=== PATIENT | female | born 1970 | race Caucasian/White ===

== ENCOUNTER 2017-12-12 12:52 | Emergency (ER) | payer MEDICARE, MEDICAID ==
[2017-12-12 13:13] VITALS: BP 131/77
[2017-12-12] MEDS ORDERED: Acetaminop/Codeine 30 MG TAB* 1 TAB (300 MG/30 MG) PO ONE (13:23)
--- NOTE | 2017-12-12 13:27 | UC ---
Hand/Wrist HPI - HPI Summary HPI Summary: Patient woke up with severe pain in the left kndex finger, it is slightly red and swollen. unknown IZZY. - History Of Current Complaint Chief Complaint: UCUpperExtremity Stated Complaint: LEFT FINGER COMPLAINT Time Seen by Provider: 12/12/17 13:19 Hx Obtained From: Patient Hx Last Menstrual Period: 11/13/17 ?: No Onset/Duration: Sudden Onset, Lasting Hours Severity Initially: Severe Severity Currently: Severe Aggravating Factor(s): Movement Alleviating Factor(s): Nothing Associated Signs And Symptoms: Positive: Swelling, Redness - Allergies/Home Medications Allergies/Adverse Reactions: Allergies Allergy/AdvReac Type Severity Reaction Status Date / Time Ibuprofen [From Motrin] Allergy Unknown Unknown Verified 12/12/17 13:13 Reaction Details Olanzapine Allergy Unknown Unknown Verified 12/12/17 13:13 Reaction Details Home Medications: Home Medications Citalopram TAB* [CeleXA TAB*] 20 mg PO DAILY 12/12/17 [History Confirmed ] Folic Acid TAB* [Folvite TAB*] 1 mg PO DAILY 12/12/17 [History Confirmed ] PMH/Surg Hx/FS Hx/Imm Hx Previously Healthy: Yes Other History Of: Negative For: Anticoagulant Therapy - Surgical History Surgical History: Yes Surgery Procedure, Year, and Place: CARPAL TUNNEL, 1993 RIGHT. AMMY FEET, 1998 X2. [place], 2003. CYST FROM LEFT EYE A CHILD. GASTRIC BYPASS, 2011 Gallbladder removed - Family History Known Family History: Positive: None Negative: Cardiac Disease, Hypertension - Social History Alcohol Use: None Substance Use Type: None Smoking Status (MU): Never Smoked Tobacco Type: Cigarettes Have You Smoked in the Last Year: No - Immunization History Most Recent Influenza Vaccination: fall 2012 Most Recent Tetanus Shot: within ten years Most Recent Pneumonia Vaccination: none Review of Systems Constitutional: Negative Skin: Other - redness of knuckle on hand Eyes: Negative ENT: Negative Respiratory: Negative Cardiovascular: Negative Gastrointestinal: Negative Genitourinary: Negative Motor: Negative Neurovascular: Negative Musculoskeletal: Arthralgia, Edema, Myalgia Neurological: Negative Psychological: Negative Is Patient Immunocompromised?: No All Other Systems Reviewed And Are Negative: Yes Physical Exam Triage Information Reviewed: Yes Appearance: No Pain Distress, Well-Nourished, Pain Distress Vital Signs: Initial Vital Signs Temp 98.7 F 01/20/18 13:09 Pulse 71 12/12/17 13:09 Resp 14 12/12/17 13:09 BP 131/77 12/12/17 13:09 Pulse Ox 100 12/12/17 13:09 Vital Signs Reviewed: Yes Eye Exam: Normal ENT Exam: Normal Dental Exam: Normal Neck exam: Normal Respiratory Exam: Normal Cardiovascular Exam: Normal Abdominal Exam: Normal Abdomen Description: Positive: Nontender, No Organomegaly, Soft Bowel Sounds: Positive: Present Musculoskeletal Exam: Normal Musculoskeletal: Positive: Strength Limited @ - at baselind due to arthritis, ROM Limited @ - joints are very lax,, Edema @ - left index finger MCP joint Neurological Exam: Normal Neurological: Positive: Alert, Muscle Tone Normal Psychological Exam: Normal Hand/Wrist Course/Dx - Course Course Of Treatment: hx obtained, exam performed ,meds reviewed, xray obtained, swan neck deformity noted, this is not a new finding according to patient, pain med given. finger spint applied. 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 left index finger pain and swelling Discharge - Discharge Plan Condition: Stable Disposition: HOME Patient Education Materials: Arthralgia (ED) Referrals: Jessica Funez MD [Primary Care Provider] - Additional Instructions: 1. use the spint for support over the next few days. 2. warm water soaks, can use epsom salts as well for the finger and hand. 3. Your xray shows no fracture, does show that you have a swans neck deformity of the joints of the finger, 4. if pain persists with rest and splinting, your finger becomes hot to touch, you need to follow up.
--- NOTE | 2017-12-12 14:01 | RAD ---
HISTORY: Pain and swelling of left index finger COMPARISONS: None VIEWS: 4, Frontal, lateral, and oblique views of the second digit of the left hand FINDINGS: BONE DENSITY: Normal. BONES: There is no displaced fracture. JOINTS: The left PIP joint is held in extension. The left DIP joint is held in flexion. ALIGNMENT: There is no dislocation. SOFT TISSUES: Unremarkable. OTHER FINDINGS: None. IMPRESSION: SWAN-NECK DEFORMITY OF THE SECOND DIGIT OF THE LEFT HAND
== END 2017-12-12 14:22 | disposition home or self-care (01) ==
LOC: UCCORT 12:52
DX: M20.032 Swan-neck deformity of left finger(s) (principal); M79.645 Pain in left finger(s); M79.89 Other specified soft tissue disorders; Z88.8 Allergy status to other drugs, medicaments and biological substances
CPT/HCPCS: 73140; 99212; A9270-GY; G0463

== ENCOUNTER 2018-04-07 13:27 | Emergency (ER) | payer MEDICARE, MEDICAID ==
[2018-04-07 13:56] VITALS: BP 116/67
--- NOTE | 2018-04-07 14:36 | UC ---
Lower Extremity/Ankle HPI - HPI Summary HPI Summary: Pt c/o right inner foot pain, bruising, after hitting right inner foot against metal frame on chair. - History of Current Complaint Chief Complaint: UCLowerExtremity Stated Complaint: RIGHT ANKLE INJURY Time Seen by Provider: 04/07/18 14:10 Hx Obtained From: Patient Hx Last Menstrual Period: 11/13/17 ?: No Onset/Duration: Sudden Onset, Still Present Severity Initially: Moderate Severity Currently: Moderate Pain Intensity: 8 Aggravating Factor(s): Standing, Ambulation Alleviating Factor(s): Rest, Elevation Able to Bear Weight: Yes - minimal - Risk Factors Gout Risk Factors: Age Over 40 DVT Risk Factors: Negative Septic Arthritis Risk Factor: Negative - Allergies/Home Medications Allergies/Adverse Reactions: Allergies Allergy/AdvReac Type Severity Reaction Status Date / Time ibuprofen Allergy "Tongue Verified 04/07/18 13:46 Swells" olanzapine [From Zyprexa] Allergy "Tongue Verified 04/07/18 13:46 Swells" Home Medications: Home Medications Cyanocobalamin TAB* [Vitamin B12 TAB*] 1,000 mcg PO DAILY 04/07/18 [History Confirmed 04/07/18] Ferrous Fum/Vit C/B12-If/Folic [Ferocon] 1 cap PO MOWEFR 04/07/18 [History Confirmed 04/07/18] Folic Acid TAB* [Folvite TAB*] 1 mg PO DAILY 04/07/18 [History Confirmed ] Sertraline* [Zoloft*] 100 mg PO DAILY 04/07/18 [History Confirmed 04/07/18] Zolpidem TAB* [Ambien TAB*] 10 mg PO BEDTIME PRN 04/07/18 [History Confirmed ] lamoTRIgine TAB(*) [LaMICtal TAB(*)] 150 - 200 mg PO SEE INSTRUCTIONS 04/07/18 [ History Confirmed 04/07/18] PMH/Surg Hx/FS Hx/Imm Hx Previously Healthy: Yes Other History Of: Negative For: Anticoagulant Therapy - Surgical History Surgical History: Yes Surgery Procedure, Year, and Place: CARPAL TUNNEL, 1993 RIGHT. AMMY FEET, 1998 X2. [place], 2002. CYST FROM LEFT EYE A CHILD. GASTRIC BYPASS, 2011 Gallbladder removed - Family History Known Family History: Positive: None Negative: Cardiac Disease, Hypertension - Social History Occupation: Disabled Lives: [employer] Alcohol Use: None Substance Use Type: None Smoking Status (MU): Never Smoked Tobacco Type: Cigarettes Have You Smoked in the Last Year: No - Immunization History Most Recent Influenza Vaccination: fall 2012 Most Recent Tetanus Shot: within ten years Most Recent Pneumonia Vaccination: none Review of Systems Constitutional: Negative Skin: Bruising - right innner mid foot Eyes: Negative ENT: Negative Respiratory: Negative Cardiovascular: Negative Gastrointestinal: Negative Genitourinary: Negative Motor: Decreased ROM - preexisting Neurovascular: Negative Musculoskeletal: Arthralgia, Decreased ROM - right ankle,left ankle has ankle support on Neurological: Negative Psychological: Negative Is Patient Immunocompromised?: No All Other Systems Reviewed And Are Negative: Yes Physical Exam Triage Information Reviewed: Yes Appearance: Well-Appearing Vital Signs: Initial Vital Signs Temp 98.5 F 04/07/18 13:43 Pulse 76 04/07/18 13:43 Resp 16 04/07/18 13:43 BP 116/67 04/07/18 13:43 Pulse Ox 100 04/07/18 13:43 Vital Signs Reviewed: Yes Eye Exam: Normal Dental Exam: Normal Neck exam: Normal Respiratory: Positive: No respiratory distress Musculoskeletal Exam: Other Musculoskeletal: Positive: Strength Limited @ - preexisting left foot, ROM Limited @ - right and left foot preexisting Neurological Exam: Normal Psychological Exam: Normal Skin Exam: Other - golf ball size hematoma right mid inner foot/arch Diagnostics - Radiology No standard instances Radiology Interpretation Completed By: Radiologist - IMPRESSION: 1. STATUS POST RIGHT ANKLE, HINDFOOT, AND MIDFOOT FUSION. 2. OSTEOARTHRITIS. 3. NO ACUTE OSSEOUS INJURY. IF SYMPTOMS PERSIST, RECOMMEND REPEAT IMAGING Lower Extremity Course/Dx - Differential Dx/Diagnosis Differential Diagnosis/HQI/PQRI: Contusion, Fracture (Closed) Provider Diagnoses: right foot contusion Discharge - Sign-Out/Discharge Documenting (check all that apply): Discharge/Admit/Transfer - Discharge Plan Condition: Stable Disposition: HOME Patient Education Materials: Foot Contusion (ED), R.I.C.E. Treatment (ED) Referrals: Jessica Funez MD [Primary Care Provider] - If Needed - Billing Disposition and Condition Condition: STABLE Disposition: HOME
--- NOTE | 2018-04-07 14:45 | RAD ---
HISTORY: Right ankle fusion, foot trauma, contusion COMPARISONS: None VIEWS: 2, Frontal and lateral views of the right foot FINDINGS: BONE DENSITY: Normal. BONES: The patient is fusion across the tibiotalar and subtalar articulations. The patient is status post fusion of the lateral aspect of the midfoot. There is no appreciable hardware failure or osteolysis. There is no displaced fracture or dislocation. JOINTS: There is osteoarthritis of the first MTP joint. ALIGNMENT: There is no dislocation. SOFT TISSUES: Unremarkable. OTHER FINDINGS: None. IMPRESSION: 1. STATUS POST RIGHT ANKLE, HINDFOOT, AND MIDFOOT FUSION. 2. OSTEOARTHRITIS. 3. NO ACUTE OSSEOUS INJURY. IF SYMPTOMS PERSIST, RECOMMEND REPEAT IMAGING
== END 2018-04-07 15:20 | disposition home or self-care (01) ==
LOC: UCCORT 13:27
DX: S90.31XA Contusion of right foot, initial encounter (principal); W22.03XA Walked into furniture, initial encounter; Y93.9 Activity, unspecified; Y92.9 Unspecified place or not applicable; Z88.6 Allergy status to analgesic agent; Z88.8 Allergy status to other drugs, medicaments and biological substances
CPT/HCPCS: 99212; G0463

== ENCOUNTER 2018-11-07 11:39 | Emergency (ER) | payer MEDICARE, MEDICAID ==
[2018-11-07 12:24] VITALS: BP 150/76
--- NOTE | 2018-11-07 13:28 | UC ---
Skin Complaint HPI - HPI Summary HPI Summary: pt is accompanied by penitentiary caregiver. Pt has been "picking at" left hand dorsal aspect due to anxiety and depression (per patient). Pt and caregiver are concerned for infection at site. - History of Current Complaint Chief Complaint: UCSkin Time Seen by Provider: 11/07/18 12:32 Stated Complaint: SKIN CONCERN Hx Obtained From: Patient Hx Last Menstrual Period: 11/05/18 ?: No Onset/Duration: Gradual Onset, Lasting Days, Still Present Skin Exposure Onset/Duration: Days Ago Timing: Constant Onset Severity: Mild Current Severity: Moderate Pain Intensity: 7 Pain Scale Used: 0-10 Numeric Location: Hand (Left) Character: Pain, Redness, Painful Aggravating Factor(s): Touch Alleviating Factor(s): Nothing Associated Signs & Symptoms: Positive: Tenderness Related History: Trauma - self inflicted scratching - Allergy/Home Medications Allergies/Adverse Reactions: Allergies Allergy/AdvReac Type Severity Reaction Status Date / Time ibuprofen Allergy "Tongue Verified 11/07/18 12:24 Swells" olanzapine [From Zyprexa] Allergy "Tongue Verified 11/07/18 12:24 Swells" PMH/Surg Hx/FS Hx/Imm Hx Previously Healthy: Yes Other History Of: Negative For: Anticoagulant Therapy - Surgical History Surgical History: Yes Surgery Procedure, Year, and Place: CARPAL TUNNEL, 1993 RIGHT. AMMY FEET, 1998 X2. [place], 2003. CYST FROM LEFT EYE A CHILD. GASTRIC BYPASS, 2011 Gallbladder removed - Family History Known Family History: Positive: None Negative: Cardiac Disease, Hypertension - Social History Occupation: Disabled Lives: [employer] Alcohol Use: None Substance Use Type: None Smoking Status (MU): Never Smoked Tobacco Type: Cigarettes Have You Smoked in the Last Year: No - Immunization History Most Recent Influenza Vaccination: fall 2012 Most Recent Tetanus Shot: within ten years Most Recent Pneumonia Vaccination: none Review of Systems All Other Systems Reviewed And Are Negative: Yes Constitutional: Positive: Negative Skin: Positive: Other - scabbed over wounds, mild erythema at wound site Eyes: Positive: Negative ENT: Positive: Negative Respiratory: Positive: Negative Cardiovascular: Positive: Negative Gastrointestinal: Positive: Negative Genitourinary: Positive: Negative Motor: Positive: Negative Neurovascular: Positive: Negative Musculoskeletal: Positive: Negative Neurological: Positive: Negative Psychological: Positive: Negative Is Patient Immunocompromised?: No Physical Exam Triage Information Reviewed: Yes Appearance: Well-Appearing Vital Signs: Initial Vital Signs Temp 97.7 F 11/07/18 12:18 Pulse 86 11/07/18 12:18 Resp 16 11/07/18 12:18 BP 150/76 11/07/18 12:18 Pulse Ox 100 11/07/18 12:18 Vital Signs Reviewed: Yes Eye Exam: Normal Eyes: Positive: Other: - strabismus ENT Exam: Normal ENT: Positive: Hearing grossly normal Dental Exam: Normal Neck exam: Normal Respiratory: Positive: No respiratory distress Musculoskeletal Exam: Normal Neurological Exam: Normal Psychological Exam: Normal Skin Exam: Other - scabbed over wounds, mild swelling, mild erythema surrounding multiple wounds, Course/Dx - Differential Diagnoses - Skin Complaint Differential Diagnoses: Cellulitis, MRSA - Diagnoses Provider Diagnosis: Infected wound Discharge - Sign-Out/Discharge Documenting (check all that apply): Patient Departure All imaging exams completed and their final reports reviewed: No Studies - Discharge Plan Condition: Stable Disposition: HOME Prescriptions: Sulfamethox/Trimethoprim DS* [Bactrim DS 800/160 TAB*] 1 tab PO Q12H #14 tab Patient Education Materials: Wound Infection (ED), Acute Wound Care (ED) Referrals: Jessica Funez MD [Primary Care Provider] - If Needed - Billing Disposition and Condition Condition: STABLE Disposition: Home
== END 2018-11-07 12:51 | disposition home or self-care (01) ==
LOC: UCCORT 11:39
DX: S61.402A Unspecified open wound of left hand, initial encounter (principal); Y33.XXXA Other specified events, undetermined intent, initial encounter; Y92.9 Unspecified place or not applicable; Y92.099 Unspecified place in other non-institutional residence as the place of occurrence of the external cause; Z88.6 Allergy status to analgesic agent; Z88.8 Allergy status to other drugs, medicaments and biological substances
CPT/HCPCS: 99212; G0463

== ENCOUNTER 2024-07-10 08:26 | Inpatient (IN) ==
[2024-07-10] MEDS: Clindamycin 600 MG/D5W BAG 600 MG/50 ML BAG IV ONE (10:25)
[2024-07-10 10:28] LABS: ABS Eosinophils 0.1 10^3/uL (0.0-0.5); ABS Lymphocytes 1.6 10^3/uL (1.0-4.8); ABS Monocytes 0.8 10^3/uL (0.0-0.9); ABS Neutrophils 7.5 10^3/uL (1.5-7.6); ABS Nucleated RBC 0.02 10^3/ul; Eosinophil % 0.9 %; Hematocrit 41.6 % (35-45); Hemoglobin 14.1 g/dL (11.5-14.3); Mean Corpuscular Hemoglobin 27.9 pg (27-33); Mean Corpuscular Hgb Conc 33.9 g/dL (31-36); Mean Corpuscular Volume 82.2 fL (80-97); Mean Platelet Volume 8.6 fL (7.5-11.2); Nucleated Red Blood Cells % 0.2 %/100WBC (0.0-0.8); Platelet Count 262 10^3/uL (150-450); Red Blood Count 5.06 10^6/uL (3.63-4.92); Red Cell Distribution Width 14.6 % (12-17); White Blood Count 10.1 10^3/uL (3.8-11.8)
[2024-07-10 10:46] LABS: ALT 22 U/L (7-52); Albumin 4.4 g/dL (3.2-5.2); Albumin/Globulin Ratio 1.6 (1-3); Alkaline Phosphatase 96 U/L (35-149); Anion Gap 9 mmol/L (2-16); Blood Urea Nitrogen 9 mg/dL (6-24); C Reactive Protein 46.82 mg/L (<8.01); CO2 Carbon Dioxide 22 mmol/L (22-32); Chloride 104 mmol/L (101-111); Creatinine, Serum 0.53 mg/dL (0.51-0.95); Globulin 2.7 g/dL (2-4); Glucose 121 mg/dL (70-100); Sodium 135 mmol/L (135-145); Total Bilirubin 1.1 mg/dL (0.2-1.0); Total Protein 7.1 g/dL (6.4-8.9); eGFR CKD-EPI 110.5 (>60)
[2024-07-10] MEDS: Vancomycin 1,500 MG in NS 0.9% 250 ml 250 ML IVPB ONE ×2 (11:19→13:01)
[2024-07-10 12:15] LABS: Potassium Redraw 3.9 mmol/L (3.5-5.0)
[2024-07-10 12:21] LABS: Erythrocyte Sed Rate 34 mm/Hr (0-29)
[2024-07-10] MEDS ORDERED: Vancomycin per Pharmacy 1 EA NOTE FOLLOW UP SCH (13:00)
[2024-07-10] MEDS ORDERED: cefTRIAXone 2 GM ADDV.VIAL 2 GM in NS 0.9% 100 ml BAG 100 ML IV ONE (13:05)
[2024-07-10] MEDS: cefTRIAXone 1 gm/50 mL D5W 1 GM/50 ML BAG IV ONE (13:06)
[2024-07-10] MEDS: Heparin 5000 UNITS/ML 1 mL VIAL SUBCUT SCH (13:19)
[2024-07-10] MEDS: Vancomycin 1,750 MG in NS 0.9% 500 ml BAG 500 ML IVPB ONE (13:46)
[2024-07-10] MEDS: Vancomycin 1,500 MG in NS 0.9% 250 ml 250 ML IVPB SCH (22:49)
[2024-07-11] MEDS: DORZOLAMIDE BOTH EYES SCH (00:28)
[2024-07-11] MEDS: TIMOLOL BOTH EYES SCH (00:28)
[2024-07-11 08:37] LABS: ABS Eosinophils 0.1 10^3/uL (0.0-0.5); ABS Lymphocytes 1.6 10^3/uL (1.0-4.8); ABS Monocytes 0.8 10^3/uL (0.0-0.9); ABS Neutrophils 4.9 10^3/uL (1.5-7.6); Eosinophil % 1.4 %; Hematocrit 37.1 % (35-45); Hemoglobin 12.7 g/dL (11.5-14.3); Lymphocyte % 21.9 %; Mean Corpuscular Hemoglobin 28.4 pg (27-33); Mean Corpuscular Hgb Conc 34.3 g/dL (31-36); Mean Corpuscular Volume 82.8 fL (80-97); Mean Platelet Volume 8.4 fL (7.5-11.2); Platelet Count 183 10^3/uL (150-450); Red Blood Count 4.48 10^6/uL (3.63-4.92); Red Cell Distribution Width 14.8 % (12-17); White Blood Count 7.5 10^3/uL (3.8-11.8)
[2024-07-11 09:04] LABS: C Reactive Protein 94.6 mg/L (<8.01); Calcium 8.4 mg/dL (8.6-10.3); Creatinine, Serum 0.6 mg/dL (0.51-0.95); Potassium 3.9 mmol/L (3.5-5.0); eGFR CKD-EPI 107.3 (>60)
[2024-07-11] MEDS: Dorzolamide/Timolol OPTH (NF) 10 ML BOT BOTH EYES SCH (10:59)
[2024-07-11] MEDS: Morphine 2 MG/ML SYRINGE IV PRN (11:51)
[2024-07-11] MEDS: cefTRIAXone 2 gm/50 mL D5W 2 GM/50 ML BAG IV SCH (13:36)
[2024-07-11] MEDS: Vancomycin 1,250 MG in NS 0.9% 250 ml 250 ML IVPB SCH (16:53)
[2024-07-11] MEDS: Vancomycin Trough Check NOTE FOLLOW UP ONE (16:56)
[2024-07-12 06:08] LABS: ABS Eosinophils 0.2 10^3/uL (0.0-0.5); ABS Lymphocytes 1.6 10^3/uL (1.0-4.8); ABS Monocytes 0.7 10^3/uL (0.0-0.9); ABS Neutrophils 5.2 10^3/uL (1.5-7.6); ABS Nucleated RBC 0.01 10^3/ul; Eosinophil % 2.1 %; Hematocrit 35.5 % (35-45); Hemoglobin 12.3 g/dL (11.5-14.3); Mean Corpuscular Hemoglobin 28.4 pg (27-33); Mean Corpuscular Hgb Conc 34.7 g/dL (31-36); Mean Corpuscular Volume 81.7 fL (80-97); Mean Platelet Volume 8.4 fL (7.5-11.2); Nucleated Red Blood Cells % 0.1 %/100WBC (0.0-0.8); Platelet Count 190 10^3/uL (150-450); Red Blood Count 4.35 10^6/uL (3.63-4.92); Red Cell Distribution Width 14.7 % (12-17); White Blood Count 7.7 10^3/uL (3.8-11.8)
[2024-07-12 06:27] LABS: C Reactive Protein 89.44 mg/L (<8.01); Calcium 8.2 mg/dL (8.6-10.3); Creatinine, Serum 0.54 mg/dL (0.51-0.95); Potassium 3.6 mmol/L (3.5-5.0)
[2024-07-12] MEDS ORDERED: Lidocaine 1% VIAL 10 MG/ML 30 ML VIAL ONE (13:22)
[2024-07-12] MEDS ORDERED: Propofol 10 MG/ML 20 ML BTL ONE (13:52)
[2024-07-12] MEDS ORDERED: fentaNYL 100 mcg/2 ml 50 MCG/ML VIAL ONE ×3 (13:52→15:50)
[2024-07-12] MEDS ORDERED: Ondansetron 4 mg VIAL 2 MG/ML 2 ml VIAL ONE (13:52)
[2024-07-12] MEDS ORDERED: Midazolam 2 mg/2 ml VIAL 1 mg/ml 2 ml VIAL (2 mg) ONE (13:52)
[2024-07-12] MEDS ORDERED: Dexamethasone IV 4 MG/ML VIAL 1 ml VIAL ONE (13:52)
[2024-07-12] MEDS ORDERED: Lidocaine 2% PF 5 ML VIAL ONE (13:52)
[2024-07-12] MEDS: fentaNYL 100 mcg/2 ml 50 MCG/ML VIAL IV PRN (15:55)
[2024-07-12] MEDS ORDERED: Metoclopramide 5 MG/ML VIAL (10 mg) IV SLOW PU ONE (16:00)
[2024-07-12] MEDS ORDERED: Ondansetron 4 mg VIAL 2 MG/ML 2 ml VIAL IV PRN (16:00)
[2024-07-12] MEDS ORDERED: HYDROmorphone 1 MG/1 ML SYRINGE IV PRN (16:00)
[2024-07-12] MEDS ORDERED: Naloxone 0.4 mg VIAL 0.4 mg/ml 1 ml VIAL IV PRN (16:00)
[2024-07-12] MEDS: NS 0.9% 1000 ml BAG 1,000 ML IV SCH (17:47)
[2024-07-12] MEDS: Vancomycin 1,250 MG in NS 0.9% 250 ml 250 ML IVPB SCH (17:48)
[2024-07-13 11:07] LABS: ABS Basophils 0.1 10^3/uL (0.0-0.1); ABS Lymphocytes 1.5 10^3/uL (1.0-4.8); ABS Monocytes 0.7 10^3/uL (0.0-0.9); ABS Nucleated RBC 0.01 10^3/ul; Eosinophil % 0.4 %; Hematocrit 38.1 % (35-45); Hemoglobin 12.9 g/dL (11.5-14.3); Lymphocyte % 14.2 %; Mean Corpuscular Hemoglobin 28.1 pg (27-33); Mean Corpuscular Hgb Conc 33.9 g/dL (31-36); Mean Platelet Volume 8.5 fL (7.5-11.2); Nucleated Red Blood Cells % 0.1 %/100WBC (0.0-0.8); Platelet Count 254 10^3/uL (150-450); Red Blood Count 4.59 10^6/uL (3.63-4.92); Red Cell Distribution Width 14.6 % (12-17); White Blood Count 10.3 10^3/uL (3.8-11.8)
[2024-07-13 11:18] LABS: C Reactive Protein 50.17 mg/L (<8.01); Calcium 8.7 mg/dL (8.6-10.3); Creatinine, Serum 0.57 mg/dL (0.51-0.95); Potassium 3.7 mmol/L (3.5-5.0); eGFR CKD-EPI 108.6 (>60)
[2024-07-13] MEDS: Vancomycin Trough Check NOTE FOLLOW UP ONE (11:25)
[2024-07-13 12:41] LABS: Activated Partial Thrombo Time 27.3 seconds (26.0-38.0); INR 1.18 (0.85-1.14)
[2024-07-13] MEDS: Heparin 5000 UNITS/ML 1 mL VIAL SUBCUT SCH (13:58)
[2024-07-14 08:39] LABS: ABS Eosinophils 0.2 10^3/uL (0.0-0.5); ABS Lymphocytes 2.2 10^3/uL (1.0-4.8); ABS Monocytes 0.4 10^3/uL (0.0-0.9); ABS Neutrophils 3.1 10^3/uL (1.5-7.6); Eosinophil % 2.8 %; Hematocrit 31.5 % (35-45); Hemoglobin 10.8 g/dL (11.5-14.3); Lymphocyte % 37.8 %; Mean Corpuscular Hemoglobin 28.6 pg (27-33); Mean Corpuscular Hgb Conc 34.3 g/dL (31-36); Mean Corpuscular Volume 83.4 fL (80-97); Mean Platelet Volume 8.5 fL (7.5-11.2); Nucleated Red Blood Cells % 0.1 %/100WBC (0.0-0.8); Platelet Count 187 10^3/uL (150-450); Red Blood Count 3.78 10^6/uL (3.63-4.92); Red Cell Distribution Width 14.7 % (12-17); White Blood Count 5.8 10^3/uL (3.8-11.8)
[2024-07-14] MEDS: Heparin 5000 UNITS/ML 1 mL VIAL SUBCUT SCH (21:57)
[2024-07-15 10:21] VITALS: BP 144/78
[2024-07-15] MEDS: cefTRIAXone 1 gm/50 mL D5W 1 GM/50 ML BAG IV SCH (11:45)
[2024-07-15 12:33] LABS: ABS Basophils 0.1 10^3/uL (0.0-0.1); ABS Eosinophils 0.2 10^3/uL (0.0-0.5); ABS Lymphocytes 1.5 10^3/uL (1.0-4.8); ABS Monocytes 0.6 10^3/uL (0.0-0.9); ABS Neutrophils 3.8 10^3/uL (1.5-7.6); Eosinophil % 2.6 %; Hematocrit 34.1 % (35-45); Hemoglobin 11.4 g/dL (11.5-14.3); Lymphocyte % 24.9 %; Mean Corpuscular Hemoglobin 27.8 pg (27-33); Mean Corpuscular Hgb Conc 33.5 g/dL (31-36); Mean Platelet Volume 7.7 fL (7.5-11.2); Platelet Count 199 10^3/uL (150-450); Red Blood Count 4.11 10^6/uL (3.63-4.92); Red Cell Distribution Width 15.1 % (12-17); White Blood Count 6.2 10^3/uL (3.8-11.8)
[2024-07-15] MEDS: Dextran 70/Hypromellose Tears Eye Drops 15 ml BTL (for Artificials Tears) LEFT EYE PRN (13:56)
== END 2024-07-15 14:35 | disposition home or self-care (01) | DRG 513 ==
LOC: ED 08:26 → EDHOLD 08:26 → SUATTDRO 13:03 → EDHOLD 23:19 → SSU 07-11 00:20 → SUATTDRO 07-12 15:24
PROVIDERS: ADMIT Internal Medicine; ATTEND Internal Medicine